=== PATIENT | female | born 1955 | race Caucasian/White ===

== ENCOUNTER → 2017-01-31 | Outpatient (CLI) | payer OTHER | END | disposition home or self-care (01) | DX: M25.552 Pain in left hip (principal); M25.652 Stiffness of left hip, not elsewhere classified; R26.2 Difficulty in walking, not elsewhere classified; M62.81 Muscle weakness (generalized); M16.12 Unilateral primary osteoarthritis, left hip | CPT/HCPCS: 97161 GP; 97165 GO; 97530 GP; 97537 GO ==

== ENCOUNTER 2017-03-06 21:59 | Inpatient (IN) | payer OTHER ==
[~2017-03-06] VITALS: Ht 160 cm; Wt 118.8 kg
[~2017-03-06 21:59] MED LIST: COZAAR100 MG PO; HYDROCHLOROTHIA25 MG PO; NEURONTIN300 MG PO; PROTONIX40 MG PO; WELLBUTRIN XL150 MG PO; ZORVOLEX35 MG PO
[2017-03-07 07:35] VITALS: BP 128/72
[2017-03-07 13:21] LABS: HEMATOCRIT 33.6 % (36.0-46.0); MCH 31.4 PG (29.0-34.0); MCHC 33.3 G/DL (30.0-36.0); MCV 94.1 FL (83-99); MEAN PLAT.VOLUME 10.7 uM^3 (9.5-12.4); PLATELET COUNT 211 K/uL (156-360); RBC DIS.WIDTH-CV 12.7 % (11.8-14.6); RBC DIS.WIDTH-SD 42.5 % (39-53); RED BLOOD COUNT 3.57 M/uL (3.80-5.20)
[2017-03-07 14:41] VITALS: BP 101/53
[2017-03-07 18:59] VITALS: BP 101/55
[2017-03-07 21:02] VITALS: BP 109/57
[2017-03-08] VITALS (10 sets, daily range): BP systolic 84–116; BP diastolic 40–59
[2017-03-08 06:45] LABS: HEMATOCRIT 29.3 % (36.0-46.0); MCV 94.2 FL (83-99)
[2017-03-08 15:29] LABS: EOSINOPHIL (%) 0.4 % (0-5); EOSINOPHIL COUNT 0.1 K/uL (0-0.3); HEMATOCRIT 28.8 % (36.0-46.0); IMMATURE GRANULOCYTE (%) 0.8 % (0.0-0.7); IMMATURE GRANULOCYTE COUNT 0.1 K/uL; INSTRUMENT ABS NEUTROPHIL CT 9.3 K/uL; LYMPHOCYTE COUNT 1.5 K/uL (1.0-2.8); MCH 31.4 PG (29.0-34.0); MCHC 33.3 G/DL (30.0-36.0); MCV 94.1 FL (83-99); MEAN PLAT.VOLUME 10.8 uM^3 (9.5-12.4); MONOCYTE (%) 11.8 % (3-12); MONOCYTE COUNT 1.5 K/uL (0-0.8); NEUTROPHIL COUNT 9.3 K/uL (1.8-6.4); PLATELET COUNT 183 K/uL (156-360); RBC DIS.WIDTH-CV 13.2 % (11.8-14.6); RED BLOOD COUNT 3.06 M/uL (3.80-5.20); WHITE BLOOD COUNT 12.3 K/uL (4.1-10.2)
[2017-03-08 15:55] LABS: ANION GAP 6 MEQ/L (2-14); CHLORIDE 98 MEQ/L (99-109); GFR ESTIMATE (CALCULATED) 21 mL/min/; GLUCOSE 104 mg/dL (70-99); POTASSIUM 4.2 MEQ/L (3.7-5.4); SAMPLE HEMOLYSIS CHECK 0; SAMPLE ICTERIC CHECK 0; SAMPLE LIPEMIA CHECK 0; SODIUM 132 MEQ/L (136-147); UREA NITROGEN (BUN) 30 mg/dL (9-23)
[2017-03-09 00:14] VITALS: BP 98/55
[2017-03-09 04:05] VITALS: BP 125/54
[2017-03-09 08:20] VITALS: BP 124/59
[2017-03-09] MEDS ORDERED: ELIQUIS2.5 MG PO (08:22)
[2017-03-09] MEDS ORDERED: ENDOCET 5-3251 EACH PO (08:22)
[2017-03-09 09:50] LABS: HEMATOCRIT 26.3 % (36.0-46.0); MCH 32.1 PG (29.0-34.0); MCHC 34.2 G/DL (30.0-36.0); MCV 93.9 FL (83-99); PLATELET COUNT 154 K/uL (156-360); RBC DIS.WIDTH-CV 13.1 % (11.8-14.6); RBC DIS.WIDTH-SD 43.4 % (39-53); WHITE BLOOD COUNT 10.5 K/uL (4.1-10.2)
[2017-03-09 10:02] LABS: ANION GAP 5 MEQ/L (2-14); CHLORIDE 102 MEQ/L (99-109); POTASSIUM 4.1 MEQ/L (3.7-5.4); SAMPLE HEMOLYSIS CHECK 0; SAMPLE ICTERIC CHECK 0; SAMPLE LIPEMIA CHECK 0; SODIUM 134 MEQ/L (136-147)
[2017-03-09 10:10] LABS: GFR ESTIMATE (CALCULATED) 44 mL/min/; GLUCOSE 151 mg/dL (70-99); UREA NITROGEN (BUN) 25 mg/dL (9-23)
[2017-03-09 12:00] VITALS: BP 99/52
[2017-03-09 15:35] VITALS: BP 98/50
[2017-03-09] MEDS ORDERED: CELEBREX200 MG PO (17:34)
[2017-03-09] MEDS ORDERED: ZOFRAN4 MG PO (17:35)
[2017-03-09] MEDS ORDERED: TYLENOL REGULA325 MG PO (17:36)
[2017-03-09] MEDS ORDERED: SENNA S TABLET1 EACH PO (17:40)
[2017-03-09] MEDS ORDERED: ZORVOLEX35 MG PO (17:42)
== END 2017-03-09 16:09 | DRG 470 ==
LOC: ENRESERV 21:59 → 3WEST 03-07 07:01 → 2SOUTH 03-07 07:01 → 3WEST 03-07 14:32 → 2SOUTH 03-07 15:25 → 3WEST 03-09 16:09
PROVIDERS: Internal Medicine; Nurse Practitioner Adult Health; Orthopaedic Surgery
PROC: 0SRB01Z Replacement of Left Hip Joint with Metal Synthetic Substitute, Open Approach (ICD-10-PCS; principal; 2017-03-07)
DX: M16.12 Unilateral primary osteoarthritis, left hip (principal); I95.2 Hypotension due to drugs; T40.605A Adverse effect of unspecified narcotics, initial encounter; R39.198 Other difficulties with micturition; R50.82 Postprocedural fever; I10 Essential (primary) hypertension; E66.01 Morbid (severe) obesity due to excess calories; Z68.42 Body mass index [BMI] 45.0-49.9, adult; K21.9 Gastro-esophageal reflux disease without esophagitis; F32.9 Major depressive disorder, single episode, unspecified; G47.33 Obstructive sleep apnea (adult) (pediatric); E78.5 Hyperlipidemia, unspecified; Z87.891 Personal history of nicotine dependence; Z88.0 Allergy status to penicillin
CPT/HCPCS: 71010; 80048; 83605; 85014; 85018; 85025; 85027; 87040; 87086; 94799; 97530 GP; J0690; J1170; J2250; J3010; J7040; J7050; J7120; Q0175

== ENCOUNTER 2017-03-09 11:20 | Inpatient (IN) | payer OTHER ==
[~2017-03-09] VITALS: Ht 160 cm; Wt 125.6 kg
[~2017-03-09 11:20] MED LIST changes: +ELIQUIS2.5 MG PO; +ENDOCET 5-3251 EACH PO
[2017-03-09 16:29] VITALS: BP 106/53
[2017-03-09] MEDS ORDERED: CELEBREX200 MG PO (17:34)
[2017-03-09] MEDS ORDERED: ZOFRAN4 MG PO (17:35)
[2017-03-09] MEDS ORDERED: TYLENOL REGULA325 MG PO (17:36)
[2017-03-09] MEDS ORDERED: SENNA S TABLET1 EACH PO (17:40)
[2017-03-09] MEDS ORDERED: ZORVOLEX35 MG PO (17:42)
[2017-03-10 01:19] VITALS: BP 106/56
[2017-03-10 06:04] VITALS: BP 106/55
[2017-03-10 06:16] LABS: HEMATOCRIT 25.7 % (36.0-46.0); HEMOGLOBIN 8.4 G/DL (11.9-15.5); MCH 30.9 PG (29.0-34.0); MCHC 32.7 G/DL (30.0-36.0); MCV 94.5 FL (83-99); PLATELET COUNT 190 K/uL (156-360); RBC DIS.WIDTH-CV 13.2 % (11.8-14.6); RBC DIS.WIDTH-SD 44.5 % (39-53); RED BLOOD COUNT 2.72 M/uL (3.80-5.20); WHITE BLOOD COUNT 9.6 K/uL (4.1-10.2)
[2017-03-10 06:43] LABS: ALBUMIN 2.9 G/DL (3.2-4.8); ALKALINE PHOSPHATASE 56 IU/L (3-129); ALT (GPT) 3 IU/L (3-49); AST (GOT) 12 IU/L (2-34); CHLORIDE 100 MEQ/L (99-109); GFR ESTIMATE (CALCULATED) 24 mL/min/; GLUCOSE 114 mg/dL (70-99); POTASSIUM 4.4 MEQ/L (3.7-5.4); SODIUM 133 MEQ/L (136-147); TOTAL BILIRUBIN 0.6 MG/DL (0.0-1.0); TOTAL PROTEIN 5.3 G/DL (6.4-8.3); UREA NITROGEN (BUN) 34 mg/dL (9-23)
[2017-03-10 06:44] LABS: CREATININE 2.2 MG/DL (0.6-1.3)
[2017-03-10 15:49] VITALS: BP 100/54
[2017-03-10 21:23] LABS: UR CREATININE CONCENTRATION 278.9 MG/DL
[2017-03-11 00:01] LABS: APPEARANCE CLOUDY ((CLEAR)); BILIRUBIN NEGATIVE; BLOOD LARGE; COLOR AMBER ((YELLOW)); GLUCOSE (STRIP) NEGATIVE; KETONES NEGATIVE; LEUKOCYTES SMALL; NITRITE NEGATIVE; PROTEIN (STRIP) 30; SPECIFIC GRAVITY 1.016 (1.000-1.030); UROBILINOGEN 0.2 MG/DL (0.2-1.0)
[2017-03-11 03:18] LABS: WHITE BLOOD CELLS TNTC /HPF (0-5)
[2017-03-11 03:19] LABS: BACTERIA 3+ /HPF; EPITHELIAL CELLS 2+ /HPF; MUCUS 2+ /LPF
[2017-03-11 05:39] LABS: BASOPHIL (%) 0.3 % (0-1); EOSINOPHIL (%) 4.5 % (0-5); EOSINOPHIL COUNT 0.4 K/uL (0-0.3); HEMATOCRIT 25.1 % (36.0-46.0); HEMOGLOBIN 8.2 G/DL (11.9-15.5); IMMATURE GRANULOCYTE (%) 0.6 % (0.0-0.7); LYMPHOCYTE (%) 14.5 % (15-42); LYMPHOCYTE COUNT 1.4 K/uL (1.0-2.8); MCH 30.4 PG (29.0-34.0); MCHC 32.7 G/DL (30.0-36.0); MONOCYTE (%) 10.8 % (3-12); NEUTROPHIL (%) 69.3 % (45-76); NEUTROPHIL COUNT 6.4 K/uL (1.8-6.4); PLATELET COUNT 210 K/uL (156-360); RBC DIS.WIDTH-CV 13.2 % (11.8-14.6); RBC DIS.WIDTH-SD 43.9 % (39-53); WHITE BLOOD COUNT 9.3 K/uL (4.1-10.2)
[2017-03-11 06:13] LABS: ALBUMIN 2.9 G/DL (3.2-4.8); CHLORIDE 100 MEQ/L (99-109); CREATININE 2.5 MG/DL (0.6-1.3); GFR ESTIMATE (CALCULATED) 21 mL/min/; GLUCOSE 105 mg/dL (70-99); IRON 16 MCG/DL (35-150); PHOSPHORUS 3.4 mg/dL (2.5-4.9); POTASSIUM 4.5 MEQ/L (3.7-5.4); SODIUM 135 MEQ/L (136-147); TRANSFERRIN (TIBC) 151.4 mg/dL (215-380); TRANSFERRIN SATUR. 11 % (20-55); UREA NITROGEN (BUN) 47 mg/dL (9-23)
[2017-03-11 06:30] LABS: URIC ACID 9.5 mg/dL (3.1-9.2)
[2017-03-11 15:28] VITALS: BP 97/55
[2017-03-11 22:28] VITALS: BP 102/42
[2017-03-12 05:33] VITALS: BP 103/50
[2017-03-12 05:43] LABS: BASOPHIL (%) 0.3 % (0-1); EOSINOPHIL (%) 3.7 % (0-5); EOSINOPHIL COUNT 0.3 K/uL (0-0.3); HEMATOCRIT 24.8 % (36.0-46.0); HEMOGLOBIN 8.1 G/DL (11.9-15.5); IMMATURE GRANULOCYTE (%) 0.7 % (0.0-0.7); LYMPHOCYTE (%) 14.4 % (15-42); LYMPHOCYTE COUNT 1.3 K/uL (1.0-2.8); MCH 30.9 PG (29.0-34.0); MCHC 32.7 G/DL (30.0-36.0); MCV 94.7 FL (83-99); MONOCYTE (%) 11.6 % (3-12); NEUTROPHIL (%) 69.3 % (45-76); NEUTROPHIL COUNT 6.1 K/uL (1.8-6.4); PLATELET COUNT 242 K/uL (156-360); RBC DIS.WIDTH-CV 13.2 % (11.8-14.6); RBC DIS.WIDTH-SD 43.6 % (39-53); RED BLOOD COUNT 2.62 M/uL (3.80-5.20); WHITE BLOOD COUNT 8.8 K/uL (4.1-10.2)
[2017-03-12 06:34] LABS: CHLORIDE 101 MEQ/L (99-109); GFR ESTIMATE (CALCULATED) 27 mL/min/; GLUCOSE 102 mg/dL (70-99); PHOSPHORUS 3.2 mg/dL (2.5-4.9); POTASSIUM 4.8 MEQ/L (3.7-5.4); SODIUM 135 MEQ/L (136-147); UREA NITROGEN (BUN) 50 mg/dL (9-23)
[2017-03-12 15:00] VITALS: BP 113/59
[2017-03-13 03:32] VITALS: BP 136/62
[2017-03-13 06:23] LABS: ALBUMIN 2.9 G/DL (3.2-4.8); CHLORIDE 103 MEQ/L (99-109); POTASSIUM 4.2 MEQ/L (3.7-5.4); SODIUM 138 MEQ/L (136-147)
[2017-03-13 06:32] LABS: CREATININE 1.1 MG/DL (0.6-1.3); GFR ESTIMATE (CALCULATED) 53 mL/min/; GLUCOSE 106 mg/dL (70-99); PHOSPHORUS 2.9 mg/dL (2.5-4.9); UREA NITROGEN (BUN) 33 mg/dL (9-23)
[2017-03-13 15:18] VITALS: BP 103/53
[2017-03-14 06:09] VITALS: BP 105/59
[2017-03-14 07:45] LABS: CHLORIDE 102 MEQ/L (99-109); CREATININE 1.2 MG/DL (0.6-1.3); GFR ESTIMATE (CALCULATED) 48 mL/min/; GLUCOSE 117 mg/dL (70-99); PHOSPHORUS 2.8 mg/dL (2.5-4.9); POTASSIUM 4.1 MEQ/L (3.7-5.4); SODIUM 140 MEQ/L (136-147); UREA NITROGEN (BUN) 25 mg/dL (9-23)
[2017-03-14] MEDS ORDERED: FOLIC ACID1 MG PO (10:49)
[2017-03-14] MEDS ORDERED: Salonpas 4% Patch TD (10:49)
[2017-03-14] MEDS ORDERED: LEVOFLOXACIN500 MG PO (10:49)
[2017-03-14] MEDS ORDERED: THERAGRAN1 TABLET PO (10:49)
[2017-03-14] MEDS ORDERED: FUROSEMIDE20 MG PO (10:49)
[2017-03-14] MEDS ORDERED: ENDOCET 5-3251 EACH PO (11:08)
[2017-03-14 12:18] LABS: BASOPHIL (%) 0.5 % (0-1); EOSINOPHIL (%) 2.4 % (0-5); EOSINOPHIL COUNT 0.2 K/uL (0-0.3); HEMATOCRIT 24.7 % (36.0-46.0); HEMOGLOBIN 8.3 G/DL (11.9-15.5); LYMPHOCYTE (%) 20.2 % (15-42); LYMPHOCYTE COUNT 1.7 K/uL (1.0-2.8); MCH 32.2 PG (29.0-34.0); MCHC 33.6 G/DL (30.0-36.0); MCV 95.7 FL (83-99); MONOCYTE (%) 11.8 % (3-12); NEUTROPHIL (%) 64.1 % (45-76); NEUTROPHIL COUNT 5.4 K/uL (1.8-6.4); PLATELET COUNT 255 K/uL (156-360); RBC DIS.WIDTH-CV 13.2 % (11.8-14.6); RBC DIS.WIDTH-SD 45.5 % (39-53); RED BLOOD COUNT 2.58 M/uL (3.80-5.20); WHITE BLOOD COUNT 8.4 K/uL (4.1-10.2)
[2017-03-14] MEDS ORDERED: ELIQUIS2.5 MG PO (13:27)
== END 2017-03-14 15:23 | disposition home health service (06) | DRG 560 ==
LOC: DELPENDDIS → 3WEST 11:20 → ENPENDDIS 03-11 → 3WEST 03-13 07:04
PROVIDERS: Internal Medicine Nephrology; Physical Medicine & Rehabilitation Pain Medicine; Psychiatry & Neurology Neurology
PROC: F07M0ZZ Range of Motion and Joint Mobility Treatment of Musculoskeletal System - Whole Body (ICD-10-PCS; principal; 2017-03-09)
DX: Z47.1 Aftercare following joint replacement surgery (principal); M16.11 Unilateral primary osteoarthritis, right hip; M16.12 Unilateral primary osteoarthritis, left hip; Z96.642 Presence of left artificial hip joint; D62 Acute posthemorrhagic anemia; D69.6 Thrombocytopenia, unspecified; E83.51 Hypocalcemia; E87.1 Hypo-osmolality and hyponatremia; F32.9 Major depressive disorder, single episode, unspecified; I10 Essential (primary) hypertension; K21.9 Gastro-esophageal reflux disease without esophagitis; Z68.42 Body mass index [BMI] 45.0-49.9, adult; E66.01 Morbid (severe) obesity due to excess calories; Z87.442 Personal history of urinary calculi; N17.9 Acute kidney failure, unspecified; N39.0 Urinary tract infection, site not specified; I95.9 Hypotension, unspecified
CPT/HCPCS: 71010; 76770; 80053; 80069; 81003; 82570; 83540; 84156; 84466; 84550; 85025; 85027; 87086; 89190; 93971; 94799; 97110 GO; 97530 GP; 99202; J7030

== ENCOUNTER 2017-05-02 10:15 | Emergency (ER) | payer OTHER ==
[~2017-05-02] VITALS: Ht 160 cm; Wt 112.5 kg
[~2017-05-02 10:15] MED LIST changes: +CELEBREX200 MG PO; +FOLIC ACID1 MG PO; +FUROSEMIDE20 MG PO; +LEVOFLOXACIN500 MG PO; +SENNA S TABLET1 EACH PO; +Salonpas 4% Patch TD; +THERAGRAN1 TABLET PO; +TYLENOL REGULA325 MG PO; +ZOFRAN4 MG PO
[2017-05-02 11:42] LABS: CHLORIDE 104 mEq/L (99-109); POTASSIUM 3.5 mEq/L (3.7-5.4); SODIUM 140 mEq/L (136-147)
[2017-05-02 11:44] LABS: GLUCOSE 102 mg/dL (70-99); TOTAL PROTEIN 7.2 g/dL (6.4-8.3)
[2017-05-02 11:46] LABS: TOTAL BILIRUBIN 0.4 mg/dL (0.0-1.0)
[2017-05-02 11:47] LABS: ALKALINE PHOSPHATASE 96 IU/L (3-129)
[2017-05-02 11:48] LABS: CREATININE 1.2 mg/dL (0.6-1.3); GFR ESTIMATE (CALCULATED) 48 mL/min/
[2017-05-02 11:49] LABS: AST (GOT) 12 IU/L (2-34); UREA NITROGEN (BUN) 24 mg/dL (9-23)
[2017-05-02 11:50] LABS: ALT (GPT) 11 IU/L (3-49)
[2017-05-02] MEDS ORDERED: AMLODIPINE BES2.5 MG PO (12:24)
[2017-05-02] MEDS ORDERED: ERGOCALCIF50000 UNIT PO (12:25)
[2017-05-02] MEDS ORDERED: COZAAR100 MG PO (12:26)
[2017-05-02] MEDS ORDERED: PANTOPRAZOLE SO40 MG PO (12:27)
[2017-05-02] MEDS ORDERED: HYDROCHLOROTHIA25 MG PO (12:29)
[2017-05-02 12:53] LABS: THYROTROPIN (TSH) 2.3 MIU/L (0.4-5.5)
[2017-05-02 15:21] VITALS: BP 117/70
== END 2017-05-02 15:27 | disposition home or self-care (01) ==
LOC: EME 10:15
PROVIDERS: Emergency Medicine
DX: R06.02 Shortness of breath (principal); Z98.890 Other specified postprocedural states; Z96.642 Presence of left artificial hip joint; D64.9 Anemia, unspecified; Z87.442 Personal history of urinary calculi; Z87.891 Personal history of nicotine dependence; Z88.0 Allergy status to penicillin; Z90.49 Acquired absence of other specified parts of digestive tract
CPT/HCPCS: 71275; 80053; 84443; 99281; 99285; J7030